=== PATIENT | female | born 1975 | race African-American/Black ===

== ENCOUNTER 2016-12-30 13:56 | Emergency (ER) | payer OTHER ==
[~2016-12-30] VITALS: Ht 167.6 cm; Wt 105.4 kg
[~2016-12-30 13:56] MED LIST: BENTYL10 MG PO; Theragran W/Iron,MVI PO; ZOFRAN4 MG PO
[2016-12-30 15:18] LABS: HEMATOCRIT 36.5 % (36.0-46.0); MCH 26.8 PG (29.0-34.0); MCHC 31.2 G/DL (30.0-36.0); MCV 85.7 FL (83-99); MEAN PLAT.VOLUME 10.4 uM^3 (9.5-12.4); PLATELET COUNT 279 K/uL (156-360); RBC DIS.WIDTH-CV 15.2 % (11.8-14.6); RBC DIS.WIDTH-SD 47.6 % (39-53); RED BLOOD COUNT 4.26 M/uL (3.80-5.20); WHITE BLOOD COUNT 8.5 K/uL (4.1-10.2)
[2016-12-30 15:35] LABS: CHLORIDE 108 mEq/L (99-109); POTASSIUM 4.3 mEq/L (3.7-5.4); SODIUM 141 mEq/L (136-147)
[2016-12-30 15:37] LABS: GLUCOSE 78 mg/dL (70-99)
[2016-12-30 15:38] LABS: ANION GAP 8 MEQ/L (2-14)
[2016-12-30 15:41] LABS: GFR ESTIMATE (CALCULATED) > 59 mL/min/
[2016-12-30 15:42] LABS: UREA NITROGEN (BUN) 10 mg/dL (9-23)
[2016-12-30 15:43] LABS: TROP-I INTERPRETATION NEGATIVE; TROPONIN-I < 0.01 ng/mL (0.0-0.30)
[2016-12-30 16:49] VITALS: BP 109/67
== END 2016-12-30 16:49 | disposition home or self-care (01) ==
LOC: EME 13:56
PROVIDERS: Emergency Medicine
DX: R07.89 Other chest pain (principal)
CPT/HCPCS: 71020; 80048; 84484; 85027; 93005; 99281; 99284

== ENCOUNTER 2018-01-09 17:31 | Emergency (ER) | payer OTHER ==
[~2018-01-09] VITALS: Ht 167.6 cm; Wt 110.7 kg
[2018-01-09 19:00] LABS: HEMATOCRIT 37.5 % (36.0-46.0); HEMOGLOBIN 12.1 G/DL (11.9-15.5); MCH 27.1 PG (29.0-34.0); MCHC 32.3 G/DL (30.0-36.0); MCV 84.1 FL (83-99); PLATELET COUNT 265 K/uL (156-360); RBC DIS.WIDTH-CV 15.6 % (11.8-14.6); RBC DIS.WIDTH-SD 47.5 % (39-53); RED BLOOD COUNT 4.46 M/uL (3.80-5.20)
[2018-01-09 19:08] LABS: CHLORIDE 105 mEq/L (99-109); POTASSIUM 4.3 mEq/L (3.7-5.4); SODIUM 138 mEq/L (136-147)
[2018-01-09 19:09] LABS: MAGNESIUM 2.2 mg/dL (1.3-2.7)
[2018-01-09 19:10] LABS: GLUCOSE 88 mg/dL (70-99)
[2018-01-09 19:14] LABS: CREATININE 0.7 mg/dL (0.6-1.3); GFR ESTIMATE (CALCULATED) > 59 mL/min/
[2018-01-09 19:15] LABS: UREA NITROGEN (BUN) 14 mg/dL (9-23)
[2018-01-09 19:53] LABS: THYROTROPIN (TSH) 0.61 MIU/L (0.4-5.5)
[2018-01-09] MEDS ORDERED: VALIUM5 MG PO (19:57)
[2018-01-09] MEDS ORDERED: INDOCIN50 MG PO (19:57)
[2018-01-09 20:17] VITALS: BP 121/84
[2018-01-10 10:02] LABS: LYME DISEASE SEROLOGY SCREEN NEGATIVE (NEGATIVE)
== END 2018-01-09 20:19 | disposition home or self-care (01) ==
LOC: EME 17:31
PROVIDERS: Physician Assistant
DX: M62.838 Other muscle spasm (principal); M54.12 Radiculopathy, cervical region; R20.2 Paresthesia of skin; R42 Dizziness and giddiness; H50.00 Unspecified esotropia; H53.8 Other visual disturbances
CPT/HCPCS: 70450; 72125; 80048; 82607; 83735; 84443; 85027; 86618; 99281; 99284